=== PATIENT | female | born 1990 | race Caucasian/White ===

== ENCOUNTER 2023-12-08 21:07 | Emergency (ER) | payer MEDICAID ==
[~2023-12-08] VITALS: Ht 162.6 cm; Wt 71.0 kg
[2023-12-08 22:28] VITALS: BP 108/60; PULSE 66; RESP 18; TEMP 97.8; O2SAT 99
[2023-12-09 00:17] LABS: BASOPHILS % 0.5 % (0.0-2.0); EOSINOPHILS % 2.6 % (0.0-5.0); HEMATOCRIT. 38.4 % (36.0-48.0); HEMOGLOBIN. 12.8 g/dL (12.0-16.0); LYMPHOCYTES % 34.1 % (20.0-50.0); MEAN CORPUSCULAR HGB CONC 33.3 g/dL (31.0-37.0); MEAN PLATELET VOLUME 10.2 fl (7.4-10.4); MONOCYTES % 7.5 % (2.0-8.0); NEUTROPHILS % 55.3 % (40.0-76.0); PLATELET 253 x1000/uL (130-400); RED BLOOD CELL COUNT 4.41 mill/uL (4.2-5.4); RED CELL DISTRIBUTION WIDTH 13.7 % (11.6-14.6)
[2023-12-09 00:24] LABS: CHLORIDE 106 mEq/L (98-107); POTASSIUM 3.6 mEq/L (3.5-5.1); SODIUM 138 mEq/L (136-145)
[2023-12-09 00:25] LABS: CALCIUM 8.9 mg/dL (8.7-10.4); CARBON DIOXIDE 25 mEq/L (21-32)
[2023-12-09 00:30] LABS: CREATININE 0.6 mg/dL (0.6-1.0); GLUCOSE 92 mg/dL (70-105); UREA NITROGEN BLOOD 13 mg/dL (9-23)
[2023-12-09] MEDS: KETOROLAC 30MG/ML VIAL IM NR (00:30)
[2023-12-09 00:32] LABS: ALANINE AMINOTRANSFERASE 17 IU/L (10-49); ALBUMIN 4.2 g/dL (3.2-4.8); ASPARTATE AMINOTRANSFERASE 23 IU/L (<34); BILIRUBIN TOTAL 0.5 mg/dL (0.1-1.0)
[2023-12-09 00:33] LABS: PROTEIN TOTAL 6.6 g/dL (6.0-8.3)
[2023-12-09 00:53] LABS: CLARITY URINE CLEAR (CLEAR); COLOR URINE YELLOW (YELLOW); GLUCOSE URINE NEGATIVE (NEGATIVE); KETONES URINE NEGATIVE (NEGATIVE); LEUKOCYTE ESTERASE URINE NEGATIVE (NEGATIVE); NITRITE URINE NEGATIVE (NEGATIVE); OCCULT BLOOD URINE NEGATIVE (NEGATIVE); PROTEIN URINE NEGATIVE (NEGATIVE); SPECIFIC GRAVITY URINE 1.024 (1.005-1.030); UROBILINOGEN URINE 0.2 E.U./dL (0.2-1.0)
[2023-12-09] MEDS: KETOROLAC 30MG/ML VIAL IM ONE (01:31)
[2023-12-09] MEDS ORDERED: ACET-2708 MT (01:51)
== END 2023-12-09 01:57 | disposition home or self-care (01) ==
LOC: ER 21:07
DX: K80.20 Calculus of gallbladder without cholecystitis without obstruction (principal)
CPT/HCPCS: 99285; 71045; 81025; 36415; 76705; 80053; 81003; 83690; 85025; 96372; J1885